=== PATIENT | female | born 1950 | race Caucasian/White ===

== ENCOUNTER → 2021-05-15 | Outpatient (CLI) | payer MEDICARE | END | disposition home or self-care (01) | LOC: RAH 13:00 | PROVIDERS: ATTEND Orthopaedic Surgery Sports Medicine | DX: M17.12 Unilateral primary osteoarthritis, left knee (principal); M21.162 Varus deformity, not elsewhere classified, left knee; M25.762 Osteophyte, left knee | CPT/HCPCS: 73700 ==

== ENCOUNTER 2021-05-17 10:45 | Observation (INO) | payer MEDICARE ==
[~2021-05-17] VITALS: Ht 160 cm; Wt 140.0 kg
[2021-05-28 14:15] VITALS: BP 176/74
[2021-05-28 14:52] LABS: BASOPHILS % (AUTO) 0.3 % (0.0-5.0); EOSINOPHILS % (AUTO) 1.7 % (0.0-8.0); HEMATOCRIT 37.8 % (36-48); LYMPHOCYTES % (AUTO) 16.3 % (21.0-51.0); MEAN CORPUSCULAR HEMOGLOBIN 29.4 pg (27.0-33.0); MEAN CORPUSCULAR HGB CONC 31.5 g/dL (32.0-36.0); MEAN CORPUSCULAR VOLUME 93.3 fL (79-99); MONOCYTES % (AUTO) 5.1 % (3.0-13.0); NEUTROPHILS % (AUTO) 76.1 % (40.0-77.0); PLATELET COUNT (AUTO) 344 K/uL (130-400); RED BLOOD CELL COUNT(AUTO) 4.05 MIL/uL (4.00-5.50); RED CELL DISTRIBUTION WIDTH 12.9 % (11.0-15.5); WHITE BLOOD COUNT (AUTO) 13.2 K/uL (4.8-10.8)
[2021-05-28 14:57] LABS: APPEARANCE,URINE CLEAR (CLEAR); BILIRUBIN,URINE NEGATIVE (NEGATIVE); COLOR,URINE YELLOW (YELLOW); GLUCOSE, URINE (UA) NEGATIVE (NEGATIVE); KETONES,URINE NEGATIVE (NEGATIVE); LEUKOCYTE ESTERASE ,URINE NEGATIVE (NEGATIVE); NITRATE,URINE NEGATIVE (NEGATIVE); OCCULT BLOOD,URINE NEGATIVE (NEGATIVE); PROTEIN,URINE NEGATIVE (NEGATIVE); UROBILINOGEN,URINE 0.2 mg/dL (0.2-1.0)
[2021-05-28 15:07] LABS: PROTHROMBIN TIME 10.9 SEC (9.6-11.6)
[2021-05-28 15:08] LABS: PARTIAL THROMBOPLASTIN TIME 29.6 SEC (26.3-35.5)
[2021-05-28 15:13] LABS: CREATININE 1.6 mg/dL (0.5-1.5); POTASSIUM 3.8 mmol/L (3.5-5.1)
[2021-05-28] MEDS ORDERED: METF-446 PO (16:20)
[2021-05-28] MEDS ORDERED: MELO15TA12 PO (16:20)
[2021-05-28] MEDS ORDERED: CYAN1TAB44 PO (16:20)
[2021-05-28] MEDS ORDERED: VICTOZA PO (16:20)
[2021-05-28] MEDS ORDERED: DIPH1TAB PO (16:20)
[2021-05-28] MEDS ORDERED: ASPI-1012 PO (16:20)
[2021-05-28] MEDS ORDERED: TORS20TA4 PO (16:20)
[2021-05-28] MEDS ORDERED: PANT40TA55 PO (16:20)
[2021-05-28] MEDS ORDERED: LATA7.5D OP (16:20)
[2021-05-28] MEDS ORDERED: LOSA50TA64 PO (16:20)
[2021-05-28] MEDS ORDERED: VITAMIN D PO (16:20)
[2021-05-28] MEDS ORDERED: INSU100V12 SQ (16:20)
[2021-05-28] MEDS ORDERED: GLIP5TAB11 PO (16:20)
[2021-05-28] MEDS ORDERED: TIMO1DRO5 OP (16:20)
[2021-05-28] MEDS ORDERED: CO-Q 10 PO (16:20)
[2021-05-28] MEDS ORDERED: DOCU240C PO (16:20)
[2021-05-28] MEDS ORDERED: CARV12.511 PO (16:20)
[2021-05-29] VITALS (23 sets, daily range): BP systolic 114–149; BP diastolic 62–84
[2021-05-29] MEDS ORDERED: CEFAZOLIN SODIUM 1 GM VIAL IVP SCH (06:00)
[2021-05-29] MEDS ORDERED: 0.9%NACL 1000ML 1,000 ML IV ONE (11:50)
[2021-05-29] MEDS ORDERED: TRANEXAMIC ACID 1000MG/10ML ONE ×2 (13:31→17:51)
[2021-05-29] MEDS ORDERED: VANCOMYCIN 1G VIAL ONE (13:31)
[2021-05-29] MEDS ORDERED: GLYCOPYRROLATE 1 MG/5 ML SYRINGE ONE (13:54)
[2021-05-29] MEDS ORDERED: FENTANYL CITRATE PF 50 MCG/1 ML 2ML VIAL ONE (13:54)
[2021-05-29] MEDS ORDERED: ONDANSETRON 4MG INJ ONE (13:54)
[2021-05-29] MEDS ORDERED: SUCCINYLCHOLINE CHLORIDE 20 MG/ML 10 ML VIAL ONE (13:54)
[2021-05-29] MEDS ORDERED: DEXAMETHASONE SOD PHOSPHATE 10MG/ML 1ML VIAL ONE (13:54)
[2021-05-29] MEDS ORDERED: LIDOCAINE PF 100MG/5ML (2%) SYRINGE 5ML ONE (13:54)
[2021-05-29] MEDS ORDERED: ROCURONIUM 10MG/1ML SYR 10 MG/ML ML ONE (13:55)
[2021-05-29] MEDS ORDERED: PROPOFOL 10 MG/ML 20ML VIAL IV ONE (13:55)
[2021-05-29] MEDS ORDERED: NEOSTIGMINE 5MG/5ML SYR IV ONE (13:55)
[2021-05-29] MEDS ORDERED: FAMOTIDINE 20MG VIAL IV ONE (14:08)
[2021-05-29] MEDS ORDERED: CEFAZOLIN SODIUM 3 GM VIAL IV ONE (14:45)
[2021-05-29] MEDS ORDERED: TRANEXAMIC ACID 1000MG/10ML IV ONE (14:45)
[2021-05-29] MEDS ORDERED: FENTANYL CITRATE PF 50 MCG/1 ML 5ML AMP IV ONE (15:36)
[2021-05-29] MEDS ORDERED: SUGAMMADEX SODIUM 200 MG/2 ML VIAL IV ONE (16:47)
[2021-05-29] MEDS ORDERED: MEPERIDINE-PF 25 MG/ML SYG ONE ×2 (16:55→17:35)
[2021-05-29] MEDS ORDERED: ONDANSETRON 4MG INJ IVP PRN (17:00)
[2021-05-29] MEDS ORDERED: HYDROCODONE/ACETAMINOPHEN 10/325 MG TAB PO PRN (17:00)
[2021-05-29] MEDS ORDERED: 0.9%NACL 1000ML 1,000 ML IV SCH (17:00)
[2021-05-29] MEDS ORDERED: POTASSIUM CHLORIDE 20MEQ/100ML 100 ML IV PRN (17:00)
[2021-05-29] MEDS ORDERED: KETOROLAC 30MG VIAL (30MG/ML) ONE (18:07)
[2021-05-29] MEDS: ASPIRIN 81 MG EC TAB PO SCH (22:31)
[2021-05-29] MEDS: APIXABAN 2.5 MG TABLET PO SCH (22:31)
[2021-05-29] MEDS: CEFAZOLIN SODIUM 1 GM VIAL IVP SCH (22:32)
[2021-05-29] MEDS: FAMOTIDINE 20MG TAB PO SCH (22:32)
[2021-05-30] VITALS: BP 129/67
[2021-05-30] MEDS: TRAMADOL HCL 50 MG TABLET PO SCH ×4 (01:01→18:00)
[2021-05-30] MEDS: ACETAMINOPHEN 500 MG TABLET PO SCH ×3 (01:02→17:00)
[2021-05-30 04:00] VITALS: BP 106/49
[2021-05-30 04:20] LABS: HEMATOCRIT 32.9 % (36-48); MEAN CORPUSCULAR HEMOGLOBIN 29.3 pg (27.0-33.0); MEAN CORPUSCULAR HGB CONC 31.3 g/dL (32.0-36.0); MEAN CORPUSCULAR VOLUME 93.7 fL (79-99); RED BLOOD CELL COUNT(AUTO) 3.51 MIL/uL (4.00-5.50); RED CELL DISTRIBUTION WIDTH 13.1 % (11.0-15.5); WHITE BLOOD COUNT (AUTO) 18.4 K/uL (4.8-10.8)
[2021-05-30 04:51] LABS: CREATININE 1.7 mg/dL (0.5-1.5); POTASSIUM 3.7 mmol/L (3.5-5.1)
[2021-05-30] MEDS: CEFAZOLIN SODIUM 1 GM VIAL IVP SCH (05:33)
[2021-05-30 07:30] VITALS: BP 95/45
[2021-05-30] MEDS: ASPIRIN 81 MG EC TAB PO SCH ×2 (08:50→21:38)
[2021-05-30] MEDS: POLYETHYLENE GLYCOL 3350 17 GM POWD.PACK PO SCH (09:00)
[2021-05-30] MEDS: APIXABAN 2.5 MG TABLET PO SCH ×2 (09:11→21:39)
[2021-05-30 11:00] VITALS: BP 102/58
[2021-05-30] MEDS: HYDROCODONE/ACETAMINOPHEN 5/325 MG TAB PO PRN (15:41)
[2021-05-30 19:49] VITALS: BP 124/65
[2021-05-30] MEDS: FAMOTIDINE 20MG TAB PO SCH (21:38)
[2021-05-30 23:35] VITALS: BP 134/61
[2021-05-31] MEDS: ACETAMINOPHEN 500 MG TABLET PO SCH ×2 (01:37→08:07)
[2021-05-31] MEDS: TRAMADOL HCL 50 MG TABLET PO SCH ×3 (01:38→11:52)
[2021-05-31] MEDS: HYDROCODONE/ACETAMINOPHEN 5/325 MG TAB PO PRN ×2 (02:53→15:08)
[2021-05-31 04:11] VITALS: BP 95/51
[2021-05-31 08:00] VITALS: BP 90/48
[2021-05-31 08:03] VITALS: BP 92/51
[2021-05-31] MEDS: ASPIRIN 81 MG EC TAB PO SCH (08:05)
[2021-05-31] MEDS: APIXABAN 2.5 MG TABLET PO SCH (08:06)
[2021-05-31] MEDS: POLYETHYLENE GLYCOL 3350 17 GM POWD.PACK PO SCH (08:16)
[2021-05-31 16:00] VITALS: BP 95/44
[2021-06-01] MEDS ORDERED: BISACODYL 10 MG SUPP.RECT RC PRN (17:00)
== END 2021-05-31 16:30 | disposition home health service (06) ==
LOC: EDUNIT# 10:45 → EDSTATUS 05-29 11:00 → DAHIP 05-29 11:14 → 4DH 05-29 18:37 → 4AH 05-31 06:49
PROVIDERS: ADMIT Orthopaedic Surgery Sports Medicine; ATTEND Orthopaedic Surgery Sports Medicine
DX: M17.12 Unilateral primary osteoarthritis, left knee (principal); Z20.822 Contact with and (suspected) exposure to COVID-19; Z79.899 Other long term (current) drug therapy; Z98.890 Other specified postprocedural states; Z85.038 Personal history of other malignant neoplasm of large intestine
CPT/HCPCS: 27447; 36415 ×2; 64447; 73560; 76942; 80048 ×2; 81003; 82948 ×9; 85025; 85027; 85610; 85730; 87426; 93005; 96374; 96376; 97039 ×2; 97116 ×2; 97161; 97530 ×3; A4215; A4221; A4222; A4223; A4649 ×2; A4663; A6223; A6260; C1776; G0378 ×43; J0330; J0690 ×4; J1100; J1885; J2001; J2175 ×2; J2405; J2704; J3010 ×2; J3370; J3490 ×5; J7030 ×2; J2710

== ENCOUNTER → 2021-05-22 | Outpatient (CLI) | payer MEDICARE, SELFPAY | END | disposition home or self-care (01) | LOC: RAH 13:55 | PROVIDERS: ATTEND Orthopaedic Surgery Sports Medicine | DX: M17.12 Unilateral primary osteoarthritis, left knee (principal); M16.12 Unilateral primary osteoarthritis, left hip; M19.072 Primary osteoarthritis, left ankle and foot | CPT/HCPCS: 73700 ==